=== PATIENT | male | born 1945 | race Caucasian/White ===

== ENCOUNTER 2018-08-27 09:48 | Emergency (ER) | payer MEDICARE ==
[~2018-08-27] VITALS: Ht 172.7 cm; Wt 95.0 kg
[~2018-08-27 09:48] MED LIST: CLON-513 PO; FLO0.4C PO; LISI-604 PO; POLY17PO10 PO; PREG150C PO
--- NOTE | 2018-08-27 10:53 | NUR ---
AT BEDSIDE, SAID PT HAS MEMORY LOSS, CURRENTLY BEING EVALUATED BY PMD, PT WAS ON ZITHROMAX A COUPLE OF WEEKS AGO, HAS H/O AORTIC ANEURYSM, DIET CONTROLLED DM, HTN, REPORT TO MAGDA JOHANSEN, STARTED IV ON FIRST ATTEMPT, LABS DRAWN AND 1ST SET OF BLOOD CX
[2018-08-27 11:17] LABS: BASOPHILS % (AUTO) 0.5 % (0-1); EOSINOPHILS # (AUTO) 0.1 X10'3 (0-0.9); EOSINOPHILS % (AUTO) 1.1 % (0-6); HEMATOCRIT 42.7 % (42.0-52.0); HEMOGLOBIN 14.5 g/dl (14.0-17.9); LYMPHOCYTES # (AUTO) 1.4 X10'3 (1.1-4.8); LYMPHOCYTES % (AUTO) 17.3 % (21-51); MEAN CORPUSCULAR HEMOGLOBIN 29.3 PG (27.0-31.0); MEAN CORPUSCULAR HGB CONC 33.9 g/dL (33.0-36.5); MEAN CORPUSCULAR VOLUME 86.4 FL (78-98); MONOCYTES # (AUTO) 0.6 X10'3 (0-0.9); MONOCYTES % (AUTO) 7.2 % (2-12); NEUTROPHILS # (AUTO) 6.1 X10'3 (1.8-7.7); NEUTROPHILS % (AUTO) 73.9 % (42-75); PLATELET COUNT 250 X10'3 (140-440); RED BLOOD COUNT 4.94 X10'6 (4.70-6.10); WHITE BLOOD COUNT 8.3 X10'3 (4.5-11.0)
[2018-08-27 11:36] LABS: ALANINE AMINOTRANSFERASE 14 U/L (12-78); ALBUMIN 3.8 G/DL (3.4-5.0); ALKALINE PHOSPHATASE 80 IU/L (46-116); ANION GAP 12 (8-16); ASPARTATE AMINO TRANSFERASE 12 U/L (10-37); BILIRUBIN,TOTAL 0.7 MG/DL (0.1-1.0); BLOOD UREA NITROGEN 17 MG/DL (7-18); BUN/CREATININE RATIO 16.8 (5.4-32.0); CHLORIDE 104 MMOL/L (99-107); CREATININE 1.01 MG/DL (0.60-1.10); GLUCOSE 104 MG/DL (70-104); MAGNESIUM 1.8 MG/DL (1.5-2.4); SODIUM 142 MMOL/L (135-145); TOTAL CARBON DIOXIDE 25.8 MMOL/L (24-32); TOTAL PROTEIN 7.6 G/DL (6.4-8.2); eGFR 72 ML/MIN
[2018-08-27 11:39] LABS: POTASSIUM 2.8 MMOL/L (3.5-5.1)
--- NOTE | 2018-08-27 11:40 | NUR ---
CRITICAL VALUE K+2.8, DR PHAN AND MAGDA JOHANSEN AWARE
[2018-08-27] MEDS ORDERED: potassium Cl 20 mEq SR tablet PO ONE (11:55)
[2018-08-27 12:10] LABS: CLARITY,URINE CLEAR (Clear); COLOR,URINE YELLOW (Yellow); GLUCOSE, URINE NEGATIVE (Neg); KETONES,URINE 40 mg/dl (Neg); LEUKOCYTE ESTERASE ,URINE NEGATIVE (Neg); NITRITES, URINE NEGATIVE (Neg); OCCULT BLOOD,URINE TRACE-INTACT (Neg); PH,URINE 5.5 (4.8-8.0); PROTEIN,URINE 30 mg/dl (Neg)
[2018-08-27 12:19] LABS: HYALINE CASTS 0-3 /LPF (NEGATIVE); MUCUS STRANDS MODERATE /LPF (Neg); SQUAMOUS EPITHELIAL CELL,UR FEW /LPF (FEW); UA COLLECTION TYPE VOIDED
[2018-08-27 12:20] LABS: BACTERIA,URINE FEW /HPF (Neg); WBC,URINE 0-4 /HPF (0-4)
[2018-08-27 13:23] VITALS: BP 154/82
== END 2018-08-27 13:24 | disposition home or self-care (01) ==
LOC: ER 09:49
DX: E87.6 Hypokalemia (principal); R53.1 Weakness; G62.9 Polyneuropathy, unspecified; J45.909 Unspecified asthma, uncomplicated; M19.90 Unspecified osteoarthritis, unspecified site; G89.29 Other chronic pain; Z98.890 Other specified postprocedural states; Z88.1 Allergy status to other antibiotic agents; Z88.8 Allergy status to other drugs, medicaments and biological substances; Z88.0 Allergy status to penicillin; Z79.899 Other long term (current) drug therapy; Z87.01 Personal history of pneumonia (recurrent)
CPT/HCPCS: 36415; 71045; 80053; 81001; 83735; 83880; 84484; 85025; 93005; 99284

== ENCOUNTER 2018-12-07 21:35 | Emergency (ER) | payer MEDICARE, OTHER ==
[~2018-12-07] VITALS: Ht 175.3 cm; Wt 95.5 kg
[~2018-12-07 21:35] MED LIST changes: +ONDA8TAB13 PO; +PREG300C PO
[2018-12-07] MEDS ORDERED: normal saline 1000ml 1,000 ML IV ONE (22:01)
[2018-12-07] MEDS: normal saline 1000ML IV soln IVB PRN (22:22)
[2018-12-07] MEDS ORDERED: OXYC-150 PO (22:28)
[2018-12-07 22:35] LABS: BASOPHILS # (AUTO) 0.2 X10'3 (0-0.2); BASOPHILS % (AUTO) 1.3 % (0-1); EOSINOPHILS # (AUTO) 0.2 X10'3 (0-0.9); EOSINOPHILS % (AUTO) 1.6 % (0-6); HEMATOCRIT 46.8 % (42.0-52.0); LYMPHOCYTES # (AUTO) 3.3 X10'3 (1.1-4.8); LYMPHOCYTES % (AUTO) 25.1 % (21-51); MEAN CORPUSCULAR HEMOGLOBIN 30.2 PG (27.0-31.0); MEAN CORPUSCULAR HGB CONC 34.1 g/dL (33.0-36.5); MEAN CORPUSCULAR VOLUME 88.7 FL (78-98); MEAN PLATELET VOLUME 8.6 FL (7.4-10.4); MONOCYTES # (AUTO) 1.1 X10'3 (0-0.9); MONOCYTES % (AUTO) 8.3 % (2-12); NEUTROPHILS # (AUTO) 8.3 X10'3 (1.8-7.7); NEUTROPHILS % (AUTO) 63.7 % (42-75); PLATELET COUNT 309 X10'3 (140-440); RED BLOOD COUNT 5.28 X10'6 (4.70-6.10); RED CELL DISTRIBUTION WIDTH 14.2 % (11.5-14.5); WHITE BLOOD COUNT 13.1 X10'3 (4.5-11.0)
[2018-12-07 22:50] LABS: ALANINE AMINOTRANSFERASE 26 U/L (12-78); ALKALINE PHOSPHATASE 102 IU/L (46-116); ANION GAP 13 (8-16); ASPARTATE AMINO TRANSFERASE 18 U/L (10-37); BLOOD UREA NITROGEN 18 MG/DL (7-18); BUN/CREATININE RATIO 16.2 (5.4-32.0); CALCIUM 9.6 MG/DL (8.5-10.1); CHLORIDE 102 MMOL/L (99-107); CREATININE 1.11 MG/DL (0.60-1.10); GLUCOSE 107 MG/DL (70-104); SODIUM 135 MMOL/L (135-145); TOTAL CARBON DIOXIDE 20.1 MMOL/L (24-32); eGFR 65 ML/MIN
[2018-12-07 22:51] LABS: COLOR,URINE YELLOW (Yellow); GLUCOSE, URINE NEGATIVE (Neg); KETONES,URINE NEGATIVE (Neg); LEUKOCYTE ESTERASE ,URINE NEGATIVE (Neg); NITRITES, URINE NEGATIVE (Neg); OCCULT BLOOD,URINE NEGATIVE (Neg); PROTEIN,URINE TRACE mg/dl (Neg); UROBILINOGEN,URINE 0.2 E.U/dL (0.2-1.0)
[2018-12-07 22:55] LABS: MAGNESIUM 1.7 MG/DL (1.5-2.4); PARTIAL THROMBOPLASTIN TIME 30 SECONDS (22-32); PHOSPHORUS 3.1 MG/DL (2.3-4.5); TROPONIN I < 0.04 NG/ML (0.0-0.05)
[2018-12-07 22:56] LABS: D-DIMER 0.77 MG/L FEU (0-0.50)
[2018-12-07 22:57] LABS: POTASSIUM 3.9 MMOL/L (3.5-5.1)
--- NOTE | 2018-12-07 22:58 | NUR ---
Patient resting on gurney, complaining of weakness and overall malaise x1wk. Sepsis protocol ordered.
[2018-12-07 23:00] LABS: UA COLLECTION TYPE NON-SPECIFIED
[2018-12-07 23:01] LABS: BACTERIA,URINE FEW /HPF (Neg); CLARITY,URINE CLEAR (Clear); MUCUS STRANDS MODERATE /LPF (Neg); RBC,URINE NONE SEEN /HPF (0-2); SQUAMOUS EPITHELIAL CELL,UR FEW /LPF (FEW); WBC,URINE 0-4 /HPF (0-4)
--- NOTE | 2018-12-08 01:00 | NUR ---
Patient talking with technical product manager.
--- NOTE | 2018-12-08 01:04 | NUR ---
Patient to CT scan w/o problem.
[2018-12-08] MEDS ORDERED: iohexol 350MG/ML 100ml bottle IV ONE (01:09)
[2018-12-08] MEDS ORDERED: ondansetron/PF 4mg/2ml inj IV ONE (01:30)
--- NOTE | 2018-12-08 01:32 | NUR ---
Patient back from Ct an on bedside commode
[2018-12-08] MEDS ORDERED: ipratropium/albuterol 3ml nebule NEB ONE (04:10)
[2018-12-08] MEDS ORDERED: dexamethasone 4mg tablet PO ONE (04:10)
[2018-12-08] MEDS: normal saline 1000ML IV soln IVB PRN (04:13)
--- NOTE | 2018-12-08 04:33 | NUR ---
dr. keller talking with pt and his .
[2018-12-08] MEDS ORDERED: PRED20TA PO (04:35)
--- NOTE | 2018-12-08 04:38 | NUR ---
Patient with RT getting a breathing treatment.
--- NOTE | 2018-12-08 04:39 | NUR ---
SVN TREATMENT NOW. PT WITH STABLE VS.
[2018-12-08 05:37] VITALS: BP 143/93
== END 2018-12-08 05:41 | disposition home or self-care (01) ==
LOC: ER 21:36
DX: J18.9 Pneumonia, unspecified organism (principal); R53.1 Weakness; J45.909 Unspecified asthma, uncomplicated; M19.90 Unspecified osteoarthritis, unspecified site; G89.29 Other chronic pain; G62.9 Polyneuropathy, unspecified; Z98.890 Other specified postprocedural states; Z88.1 Allergy status to other antibiotic agents; Z88.8 Allergy status to other drugs, medicaments and biological substances; Z88.0 Allergy status to penicillin; Z79.899 Other long term (current) drug therapy
CPT/HCPCS: 36415; 71045; 71275; 80053; 81001; 82533; 83605; 83735; 83880; 84100; 84484; 85025; 85379; 85384; 85610; 85730; 86885; 86900; 86901; 87040; 93005; 94640; 94760; 96361; 96374; 99284; J2405; J7030; J8540; Q9967

== ENCOUNTER 2023-02-18 11:06 | Emergency (ER) | payer OTHER ==
[~2023-02-18] VITALS: Ht 172.7 cm; Wt 100.0 kg
[~2023-02-18 11:06] MED LIST changes: -CLON-513 PO; -LISI-604 PO; -ONDA8TAB13 PO; +OXYC-150 PO; -PREG150C PO
[2023-02-18 11:39] VITALS: TEMP 97.9
[2023-02-18] MEDS ORDERED: HYDR-3965 PO ×3 (15:27→16:49)
--- NOTE | 2023-02-18 15:43 | NUR ---
spoke with wei from [facility] and gave her an update and requested for transport for the pt as he is beng discharged right now, they will send a ride for the pt.
[2023-02-18 15:57] VITALS: BP 175/94; PULSE 68; RESP 17; O2SAT 95
== END 2023-02-18 16:00 | disposition home or self-care (01) ==
LOC: ER 11:07
DX: S22.088A Other fracture of T11-T12 vertebra, initial encounter for closed fracture (principal); S22.078A Other fracture of T9-T10 vertebra, initial encounter for closed fracture; W18.39XA Other fall on same level, initial encounter; Y93.89 Activity, other specified; Y92.89 Other specified places as the place of occurrence of the external cause; Y99.8 Other external cause status
CPT/HCPCS: 72100; 99285

== ENCOUNTER 2023-06-14 12:43 | Emergency (ER) | payer OTHER ==
[~2023-06-14] VITALS: Ht 172.7 cm; Wt 96.0 kg
[~2023-06-14 12:43] MED LIST changes: +HYDR-3965 PO
[2023-06-14] MEDS: CefTRIAXone 2gm/D5W 50ml BAG 50 ML IV ONE (13:05)
[2023-06-14] MEDS: normal saline 1000ML IV soln IV ONE (13:05)
[2023-06-14 13:38] LABS: BASOPHILS # (AUTO) 0.1 X10'3 (0-0.2); BASOPHILS % (AUTO) 0.7 % (0-1); EOSINOPHILS # (AUTO) 0.1 X10'3 (0-0.9); EOSINOPHILS % (AUTO) 1.1 % (0-6); HEMATOCRIT 44.2 % (42.0-52.0); HEMOGLOBIN 14.9 g/dl (14.0-17.9); LYMPHOCYTES # (AUTO) 1.9 X10'3 (1.1-4.8); LYMPHOCYTES % (AUTO) 17.8 % (21-51); MEAN CORPUSCULAR HEMOGLOBIN 29.5 PG (27.0-31.0); MEAN CORPUSCULAR HGB CONC 33.7 g/dL (33.0-36.5); MEAN CORPUSCULAR VOLUME 87.4 FL (78-98); MEAN PLATELET VOLUME 8.3 FL (7.4-10.4); MONOCYTES # (AUTO) 0.9 X10'3 (0-0.9); MONOCYTES % (AUTO) 8.7 % (2-12); NEUTROPHILS # (AUTO) 7.5 X10'3 (1.8-7.7); NEUTROPHILS % (AUTO) 71.7 % (42-75); PLATELET COUNT 275 X10'3 (140-440); RED BLOOD COUNT 5.06 X10'6 (4.70-6.10); RED CELL DISTRIBUTION WIDTH 15.5 % (11.5-14.5); WHITE BLOOD COUNT 10.4 X10'3 (4.5-11.0)
[2023-06-14 14:04] LABS: ALANINE AMINOTRANSFERASE 18 U/L (12-78); ALBUMIN/GLOBULIN RATIO 0.9 (1.1-1.5); ALKALINE PHOSPHATASE 102 IU/L (46-116); ANION GAP 9 (8-16); ASPARTATE AMINO TRANSFERASE 15 U/L (10-37); BLOOD UREA NITROGEN 17 MG/DL (7-18); BUN/CREATININE RATIO 15.5 (10.0-20.0); CALCIUM 9.4 MG/DL (8.5-10.1); CHLORIDE 100 MMOL/L (99-107); GLUCOSE 101 MG/DL (70-104); POTASSIUM 3.9 MMOL/L (3.5-5.1); SODIUM 136 MMOL/L (135-145); TOTAL CARBON DIOXIDE 26.6 MMOL/L (24-32); TOTAL PROTEIN 8.7 G/DL (6.4-8.2); eCRCL 52 ML/MIN; eGFR 64 ML/MIN
[2023-06-14 14:54] VITALS: TEMP 98.2
[2023-06-14 15:18] LABS: BILIRUBIN,URINE SMALL (Neg); COLOR,URINE YELLOW (Yellow); GLUCOSE, URINE NEGATIVE (Neg); KETONES,URINE 40 mg/dl (Neg); LEUKOCYTE ESTERASE ,URINE NEGATIVE (Neg); NITRITES, URINE NEGATIVE (Neg); OCCULT BLOOD,URINE SMALL (Neg); PROTEIN,URINE NEGATIVE (Neg)
[2023-06-14 15:19] LABS: CLARITY,URINE SLIGHTLY CLOUDY (Clear); UA COLLECTION TYPE STRAIGHT CATH
[2023-06-14 15:27] LABS: MUCUS STRANDS MODERATE /LPF (Neg); SQUAMOUS EPITHELIAL CELL,UR FEW /LPF (FEW)
[2023-06-14 15:29] LABS: BACTERIA,URINE FEW /HPF (Neg); WBC,URINE 0-4 /HPF (0-4); YEAST FEW /HPF (NEGATIVE)
[2023-06-14 15:44] VITALS: BP 136/85; PULSE 82; RESP 16; O2SAT 96
== END 2023-06-14 16:02 | disposition home or self-care (01) ==
LOC: ER 12:44
DX: Z02.81 Encounter for paternity testing (principal); R11.10 Vomiting, unspecified; F03.90 Unspecified dementia, unspecified severity, without behavioral disturbance, psychotic disturbance, mood disturbance, and anxiety; I10 Essential (primary) hypertension; J45.909 Unspecified asthma, uncomplicated; M19.90 Unspecified osteoarthritis, unspecified site; G89.29 Other chronic pain; Z88.2 Allergy status to sulfonamides; Z88.0 Allergy status to penicillin; Z88.8 Allergy status to other drugs, medicaments and biological substances; Z79.899 Other long term (current) drug therapy
CPT/HCPCS: 36415; 70450; 71045; 80053; 81001; 83605; 84145; 84484; 85025; 87040; 93005; 96365; 99285; J0696; J7030